=== PATIENT | female | born 1945 | race Caucasian/White ===

== ENCOUNTER 2018-08-12 20:39 | Emergency (ER) | payer MEDICARE ==
[2018-08-12 20:58] VITALS: BP 153/56
[2018-08-12] MEDS ORDERED: Albuterol 2.5 MG/3 ML NEB.SOL* (0.083%) INH ONE (21:09)
--- NOTE | 2018-08-12 21:17 | UC ---
Respiratory Complaint HPI - HPI Summary HPI Summary: 73-year-old woman here with a chief complaint of chest congestion and shortness of breath. She had abdominal hernia surgery a week and a half ago and shortness of breath started at that time. She feels like she has congestion in her chest. It's worse when she lays down. This evening she had a coughing fit where she was able to bring up some sputum however she is very short of breath during a coughing fit. No chest pain. No pedal edema no calf pain. NO Prior history of DVTs or PE. No fevers. She has not been able to see the color of her sputum. - History of Current Complaint Chief Complaint: UCRespiratory Stated Complaint: CHEST CONGESTION Time Seen by Provider: 08/12/18 20:45 Hx Last Menstrual Period: n/a Pain Intensity: 0 - Allergies/Home Medications Allergies/Adverse Reactions: Allergies Allergy/AdvReac Type Severity Reaction Status Date / Time sheyla Allergy GI Upset Verified 08/12/18 20:58 monosodium glutamate Allergy Airway Verified 08/12/18 20:57 Obstruction Penicillins Allergy GI Upset Verified 08/12/18 20:57 Home Medications: Home Medications Fexofenadine HCl [Allergy Relief] 60 mg PO DAILY 08/12/18 [History Confirmed 12/23] PMH/Surg Hx/FS Hx/Imm Hx Previously Healthy: Yes Endocrine History: Hypothyroidism Cardiovascular History: Hypertension - Surgical History Surgical History: Yes Surgery Procedure, Year, and Place: gull bladder removed early . hyterectomy 2004. surgical repair of left wrist and right foot s/p injury. HERNIA REPAIR - Family History Known Family History: Positive: None - Social History Alcohol Use: None Substance Use Type: None Smoking Status (MU): Never Smoked Tobacco - Immunization History Most Recent Influenza Vaccination: 2014 Review of Systems All Other Systems Reviewed And Are Negative: Yes Constitutional: Positive: Negative Skin: Positive: Negative Eyes: Positive: Negative ENT: Positive: Negative Respiratory: Positive: Shortness Of Breath, Cough, Other - SEE HPI Cardiovascular: Positive: Negative Gastrointestinal: Positive: Negative Motor: Positive: Negative Neurovascular: Positive: Negative Musculoskeletal: Positive: Negative Neurological: Positive: Negative Psychological: Positive: Negative Is Patient Immunocompromised?: No Physical Exam Triage Information Reviewed: Yes Appearance: Well-Appearing, No Pain Distress, Well-Nourished Vital Signs: Initial Vital Signs Temp 97.8 F 08/12/18 20:53 Pulse 90 08/12/18 20:53 Resp 20 08/12/18 20:53 BP 153/56 08/12/18 20:53 Pulse Ox 98 08/12/18 20:53 Vital Signs Reviewed: Yes Eye Exam: Normal Eyes: Positive: Conjunctiva Clear ENT: Negative: Nasal congestion, Nasal drainage Neck exam: Normal Neck: Positive: Supple Respiratory: Positive: Lungs clear, Normal breath sounds, No respiratory distress Cardiovascular: Positive: RRR Musculoskeletal Exam: Normal Musculoskeletal: Positive: Strength Intact, ROM Intact, No Edema, Other: - NO CALF TENDERNESS Neurological Exam: Normal Neurological: Positive: Alert, Muscle Tone Normal Psychological Exam: Normal Psychological: Positive: Age Appropriate Behavior Skin Exam: Normal UC Diagnostic Evaluation - Laboratory O2 Sat by Pulse Oximetry: 98 Respiratory Course/Dx - Course Course Of Treatment: I discussed the chest x-ray with the patient. I do not appreciate any pathology on the chest x-ray radiologist reading is pending. Patient's been short of breath ever since her surgery. She has chest congestion. She has no calf tenderness and no history of DVT or PE and she does not have any chest pain making pulmonary embolus less likely. With the chest congestion most likely diagnosis is bronchitis with bronchospasm and I'm treating her with Severiano azithromycin and albuterol inhaler for that. Congestive heart failure is also another possibility I do not appreciate pulmonary edema on the chest x-ray in the patient does not have a history of that. I discussed all this with the patient and the overall plan is she has a follow-up with her surgeon next week August 18, 2018 and she plans on getting a follow-up with her primary care physician. In addition if she gets worse she is to get further evaluation and care and emergency Department. - Differential Dx/Diagnosis Provider Diagnosis: Dyspnea Discharge - Sign-Out/Discharge Documenting (check all that apply): Patient Departure All imaging exams completed and their final reports reviewed: No - Discharge Plan Condition: Stable Disposition: HOME Prescriptions: Azithromycin 250 mg PO DAILY #4 tablet Patient Education Materials: Dyspnea (ED) Referrals: Lars Flynn MD [Primary Care Provider] - Additional Instructions: FOLLOW UP WITH YOUR DOCTOR. GO TO THE EMERGENCY DEPARTMENT FOR ANY WORSENING OF YOUR CONDITION; CHEST PAIN, SHORTNESS OF BREATH, YOU FEEL ILL OR QUESTIONS OR CONCERNS. - Billing Disposition and Condition Condition: STABLE Disposition: Home
[2018-08-12] MEDS ORDERED: Albuterol HFA INHALER* 8 gm MDI INH ONE (21:39)
[2018-08-12] MEDS ORDERED: Azithromycin TAB* 250 MG PO ONE (21:39)
--- NOTE | 2018-08-13 11:50 | UC ---
- EKG/XRAY/CT XRAY: chest - Stigmata of COPD. No acute finding Course/Dx - Diagnoses Provider Diagnoses: Dyspnea Discharge - Sign-Out/Discharge Documenting (check all that apply): Post-Discharge Follow Up All imaging exams completed and their final reports reviewed: Yes - Discharge Plan Condition: Stable Disposition: HOME Prescriptions: Azithromycin 250 mg PO DAILY #4 tablet Patient Education Materials: Dyspnea (ED) Referrals: Lars Flynn MD [Primary Care Provider] - Additional Instructions: FOLLOW UP WITH YOUR DOCTOR. GO TO THE EMERGENCY DEPARTMENT FOR ANY WORSENING OF YOUR CONDITION; CHEST PAIN, SHORTNESS OF BREATH, YOU FEEL ILL OR QUESTIONS OR CONCERNS. - Billing Disposition and Condition Condition: STABLE Disposition: Home
== END 2018-08-12 21:50 | disposition home or self-care (01) ==
LOC: UCCORT 20:39
DX: R06.00 Dyspnea, unspecified (principal); R06.02 Shortness of breath; I10 Essential (primary) hypertension; R09.89 Other specified symptoms and signs involving the circulatory and respiratory systems; Z88.0 Allergy status to penicillin; Z88.8 Allergy status to other drugs, medicaments and biological substances; Z91.018 Allergy to other foods
CPT/HCPCS: 71046; 99213; A9270-GY; G0463